=== PATIENT | female | born 1950 | race Caucasian/White ===

== ENCOUNTER 2021-02-19 11:56 | Emergency (ER) | payer OTHER, SELFPAY ==
[2021-02-19 12:15] VITALS: BP 152/75; PULSE 87; RESP 18; TEMP 36.6; O2SAT 98; BMI 28.6
== END 2021-02-19 17:55 | disposition left against medical advice (07) ==
PROVIDERS: Emergency Provider Emergency Medicine; PCP Internal Medicine
DX: R10.9 Unspecified abdominal pain (principal)
CPT/HCPCS: 99281; 99282